=== PATIENT | male | born 1975 | race Two or more races ===

== ENCOUNTER 2021-04-14 23:08 | Inpatient (IN) | payer BC ==
[~2021-04-14] VITALS: Ht 177.8 cm; Wt 103.0 kg
[2021-04-14 22:45] VITALS: BP 149/81
[2021-04-14] MEDS ORDERED: MORPHINE SULFATE INJECTION 2 MG/ML SYRG IV PRN (23:30)
[2021-04-15] VITALS (10 sets, daily range): BP systolic 116–142; BP diastolic 63–104
[2021-04-15] MEDS ORDERED: NITROGLYCERIN 0.4 MG SL TAB SL PRN
[2021-04-15] MEDS ORDERED: MORPHINE SULFATE INJECTION 2 MG/ML SYRG IV PRN
[2021-04-15 06:57] LABS: Basophils # (auto) 0 10 ^3/uL (0-0.2); Eosinophils # (auto) 0.2 10 ^3/uL (0-0.8); Mean Corpuscular Hemoglobin 34.8 pg (28.0-32.0); Mean Corpuscular Hgb Conc. 34.8 g/dL (32.0-36.0); Neutrophils # (auto) 4.1 10 ^3/uL (1.6-8.6)
[2021-04-15 06:59] LABS: Basophils % (auto) 0.6 % (0.0-2.0); Eosinophils % (auto) 2.5 % (0.0-7.0); Hematocrit 43.7 % (41.0-53.0); Hemoglobin 15.2 g/dL (13.5-17.5); Mean Corpuscular Volume 99.8 fL (80.0-100.0); Monocytes # (auto) 0.4 10 ^3/uL (0-1.3); Monocytes % (auto) 6.5 % (0.0-12.0); Neutrophils % (auto) 60.4 % (37.0-80.0); Nucleated Red Blood Cells % 0.1 %; Red Blood Cells 4.38 10^6/uL (4.5-5.90); Red Cell Distribution Width 12.3 % (11.8-14.3); White Blood Cell 6.8 10^3/uL (4.4-10.8)
[2021-04-15 07:10] LABS: BUN/Creatinine Ratio 9.7; Calcium 8.7 mg/dL (8.5-10.1); Potassium 4.4 mmol/L (3.5-5.1)
[2021-04-15] MEDS: ASPirin 81 mg TAB PO SCH (08:58)
[2021-04-15] MEDS ORDERED: ENOXAPARIN SOD 100 MG/1 ML SYRINGE SC SCH (10:00)
[2021-04-15] MEDS ORDERED: ATORVASTATIN 20 MG TAB PO SCH (10:00)
[2021-04-15] MEDS ORDERED: VERAPAMIL 2.5MG/ML INJ 2ML VIAL IV ONE (12:04)
[2021-04-15] MEDS ORDERED: ANGIOMAX 250 MG VIAL IV ONE ×2 (12:04→13:32)
[2021-04-15] MEDS ORDERED: HEPARIN SODIUM (PORCINE) 5000 UNITS/ML 1ML VIAL ONE (12:04)
[2021-04-15] MEDS ORDERED: SODIUM CHL 0.9% 50 ML ONE ×2 (12:05→13:32)
[2021-04-15] MEDS ORDERED: fentaNYL CITRATE 100 MCG/2 ML VL ONE (12:05)
[2021-04-15] MEDS ORDERED: MIDAZOLAM HCL 2MG/2ML 2ml VIAL (1mg/ml) ONE (12:05)
[2021-04-15] MEDS ORDERED: IODIXANOL 320MG/ML 100ML BTL IV ONE ×2 (12:05→13:51)
[2021-04-15] MEDS ORDERED: LIDOCAINE 2%HCL (LOCAL ANESTH.) INJ 20ML MDV ONE (12:06)
[2021-04-15] MEDS ORDERED: ASPirin 81 mg TAB ONE (14:02)
[2021-04-15] MEDS ORDERED: TICAGRELOR 90 MG TAB ONE (14:02)
[2021-04-15] MEDS: TICAGRELOR 90 MG TAB PO SCH (22:33)
[2021-04-16 04:59] VITALS: BP 122/77
[2021-04-16 05:03] VITALS: BP 119/66
[2021-04-16 07:54] LABS: Calcium 8.8 mg/dL (8.5-10.1); Potassium 3.9 mmol/L (3.5-5.1)
[2021-04-16 07:57] LABS: BUN/Creatinine Ratio 9.3
[2021-04-16 09:00] VITALS: BP 125/76
[2021-04-16] MEDS: TICAGRELOR 90 MG TAB PO SCH (09:16)
[2021-04-16] MEDS: ASPirin 81 mg TAB PO SCH (09:16)
[2021-04-16] MEDS ORDERED: METOPROLOL TARTRATE 25 MG TAB PO SCH (10:00)
[2021-04-16] MEDS ORDERED: LISINOPRIL 5 MG TAB PO SCH (10:00)
[2021-04-16] MEDS ORDERED: ASPirin-EC 81 mg tab PO SCH (10:00)
[2021-04-16 11:58] VITALS: BP 122/77
[2021-04-16] MEDS ORDERED: ATORVASTATIN 20 MG TAB PO SCH (22:00)
== END 2021-04-16 13:15 | disposition home or self-care (01) | DRG 247 ==
LOC: EAST 23:10 → TELE-EAST 23:21
PROVIDERS: ADMIT Specialist; ATTEND Internal Medicine
PROC: 4A023N7 Measurement of Cardiac Sampling and Pressure, Left Heart, Percutaneous Approach (ICD-10-PCS; principal; 2021-04-15)
PROC: 027236Z Dilation of Coronary Artery, Three Arteries with Three Drug-eluting Intraluminal Devices, Percutaneous Approach (ICD-10-PCS; 2021-04-15)
PROC: B211YZZ Fluoroscopy of Multiple Coronary Arteries using Other Contrast (ICD-10-PCS; 2021-04-15)
PROC: B215YZZ Fluoroscopy of Left Heart using Other Contrast (ICD-10-PCS; 2021-04-15)
PROC: 4A033BC Measurement of Arterial Pressure, Coronary, Percutaneous Approach (ICD-10-PCS; 2021-04-15)
DX: I21.4 Non-ST elevation (NSTEMI) myocardial infarction (principal); E66.9 Obesity, unspecified; Z20.822 Contact with and (suspected) exposure to COVID-19; E78.5 Hyperlipidemia, unspecified; I25.10 Atherosclerotic heart disease of native coronary artery without angina pectoris; Z82.49 Family history of ischemic heart disease and other diseases of the circulatory system; Z72.0 Tobacco use; Z68.32 Body mass index [BMI] 32.0-32.9, adult
CPT/HCPCS: 36415; 80048; 85025; 87081; 93306; 99152; 99153; C1874; G0378; J2250; Q9967